=== PATIENT | female | born 1995 | race Caucasian/White ===

== ENCOUNTER 2016-08-06 14:12 | Emergency (ER) | payer MEDICAID ==
[2016-08-06 14:18] VITALS: TEMP 97.8
--- NOTE | 2016-08-06 14:29 | ED PDOC ---
- ECG O2 Sat by Pulse Oximetry: 100 (RA) Pulse Ox Interpretation: Normal Medical Decision Making Medical Decision Making: Impression: Anxiety Attack Plan: * Urine * Xanax 0.25 mg PO * Reevaluation Pt reports feeling much better after xanax and motrin. Discussed addiction potential of xanax with patient. Scribe Attestation: Documented by Lupe Buitrago, acting as a scribe for Sue Rothman PA-C. Provider Scribe Attestation: All medical record entries made by the Scribe were at my direction and personally dictated by me. I have reviewed the chart and agree that the record accurately reflects my personal performance of the history, physical exam, medical decision making, and the department course for this patient. I have also personally directed, reviewed, and agree with the discharge instructions and disposition. Disposition - Clinical Impression Clinical Impression: Anxiety attack, Headache - POA Present On Arrival: None - Disposition [facility]errals: [facility] [Outside] Disposition: Routine/Home Disposition Time: 17:13 Condition: GOOD Prescriptions: ALPRAZolam [Xanax] 0.25 mg PO Q8 PRN #5 tab PRN Reason: Anxiety Instructions: Anxiety (ED) Forms: [facility] ED School/Work Excuse History of Present Illness - General Chief Complaint: Anxiety Stated Complaint: POSS ANXIETY ATTACK Time Seen by Provider: 08/06/16 14:17 - History of Present Illness Allergies/Adverse Reactions: Allergies No Known Allergies Allergy (Verified 12/06/15 22:20) Home Medications: Ambulatory Orders Control 05/12/16 ALPRAZolam [Xanax] 0.25 mg PO Q8 PRN #5 tab 08/06/16 HPI: Psych/Substance Abuse Time Seen by Provider: 08/06/16 14:17 Chief Complaint (Nursing): Anxiety Chief Complaint (Provider): Possible Anxiety Attack History Per: Patient History/Exam Limitations: no limitations Onset/Duration Of Symptoms: Hrs Current Symptoms Are (Timing): Still Present Additional Complaint(s): Pat Curry is a 21 year old female with a history of anxiety that presents to the ED with a chief complaint of a possible anxiety attack. Patient states that earlier today she had a migraine and was feeling nauseous, the latter of which caused her to be unable to take Motrin for her migraine, which she believes triggered her panic attack. She denies chest pain or any trouble breathing. Of Note: Patient used to take Prozac. PMH Reviewed: Historical Data, Nursing Documentation, Vital Signs - Medical History Other PMH: Anxiety - Family History Family History: States: Unknown Family Hx - Immunization History Hx Tetanus Toxoid Vaccination: No Hx Influenza Vaccination: No Hx Pneumococcal Vaccination: No Review of Systems Cardiovascular: Negative for: Chest Pain Respiratory: Negative for: Other (no difficulty breathing) Psych: Positive for: Anxiety Physical Exam - Reviewed Nursing Documentation Reviewed: Yes Vital Signs Reviewed: Yes - Physical Exam Appears: Positive for: Non-toxic, In Acute Distress (Patient appears anxious) Head Exam: Positive for: ATRAUMATIC, NORMOCEPHALIC Skin: Positive for: Normal Color, Warm Eye Exam: Positive for: Normal appearance, EOMI, PERRL (w) Cardiovascular/Chest: Positive for: Regular Rate, Rhythm. Negative for: Murmur Respiratory: Positive for: Normal Breath Sounds. Negative for: Wheezing Neurologic/Psych: Positive for: Alert, Oriented
[2016-08-06 17:31] VITALS: BP 128/78; PULSE 70; RESP 18; O2SAT 99
== END 2016-08-06 17:31 | disposition home or self-care (01) ==
LOC: H.ER 14:12
DX: F41.1 Generalized anxiety disorder (principal); R51 Headache

== ENCOUNTER 2016-12-29 06:35 | Emergency (ER) | payer MEDICAID ==
[2016-12-29 06:53] VITALS: BP 106/64; PULSE 77; RESP 16; TEMP 98.6; O2SAT 100
--- NOTE | 2016-12-29 07:27 | ED PDOC ---
HPI: CCC, URI, Sore Throat Time Seen by Provider: 12/29/16 07:16 Chief Complaint (Nursing): ENT Problem Chief Complaint (Provider): Sore throat, Left ear pain History Per: Patient History/Exam Limitations: no limitations Onset/Duration Of Symptoms: Days (x 2-3) Current Symptoms Are (Timing): Still Present Location Of Pain: Ear(s), Throat Associated Symptoms: Sore Throat Ear Symptoms: Left: Ear Fullness Additional Complaint(s): Pat is a 21 y/o female with a past medical history of seasonal allergies who presents to the ED complaining of feeling that the left ear is clogged, with associated sore throat for the past 2-3 days. No fever, nausea, or vomiting. PMD: provider TBD Past Medical History Reviewed: Historical Data, Nursing Documentation, Vital Signs Vital Signs: Last Vital Signs Temp 98.6 F 12/29/16 06:46 Pulse 77 12/29/16 06:46 Resp 16 12/29/16 06:46 BP 106/64 12/29/16 06:46 Pulse Ox 100 12/29/16 07:30 - Medical History PMH: Anxiety Denies: Diabetes, Hepatitis, HIV, HTN, Seizures, Sexually Transmitted Disease - Surgical History Surgical History: No Surg Hx - Family History Family History: States: Unknown Family Hx - Social History Current smoker - smoking cessation education provided: Yes (Light) Alcohol: None Drugs: Denies - Immunization History Hx Tetanus Toxoid Vaccination: No Hx Influenza Vaccination: No Hx Pneumococcal Vaccination: No - Home Medications Home Medications: Ambulatory Orders Medication Instructions Recorded Control 05/12/16 ALPRAZolam [Xanax] 0.25 mg PO Q8 PRN #5 tab 08/06/16 Loratadine/Pseudoephedrine 1 each PO DAILY PRN #10 tab.er.24h 12/29/16 [Claritin-D 24 Hour Tablet] - Allergies Allergies/Adverse Reactions: Allergies Allergy/AdvReac Type Severity Reaction Status Date / Time No Known Allergies Allergy Verified 12/29/16 07:20 Review of Systems ROS Statement: Except As Marked, All Systems Reviewed And Found Negative Constitutional: Negative for: Fever ENT: Positive for: Ear Pain (Left ear "clogged"), Throat Pain Gastrointestinal: Negative for: Nausea, Vomiting Physical Exam - Reviewed Nursing Documentation Reviewed: Yes Vital Signs Reviewed: Yes - Physical Exam Appears: Positive for: Well, Non-toxic, No Acute Distress Head Exam: Positive for: ATRAUMATIC, NORMAL INSPECTION, NORMOCEPHALIC Skin: Positive for: Normal Color, Warm, Dry. Negative for: Rash Eye Exam: Positive for: EOMI, Normal appearance, PERRL ENT: Positive for: Normal ENT Inspection, Pharynx Is (clear), TM Is/Are (normal bilaterally). Negative for: Pharyngeal Erythema, Tonsillar Exudate Neck: Positive for: Normal, Painless ROM, Supple Neurologic/Psych: Positive for: Alert, Oriented Comments: Patient states that during ear examination, her ear was "popped", alleviating the pressure - ECG O2 Sat by Pulse Oximetry: 100 (RA) Pulse Ox Interpretation: Normal Medical Decision Making Medical Decision Making: Time: 07:24 Initial Plan: --Urine test --Decongestant given Time: 07:40 Clinical Impression: Allergic symptoms Upon provider evaluation patient is medically stable, and requires no further treatment in the ED at this time. Patient will be discharged with Rx for Claritin. Counseling was provided and all questions were answered regarding diagnosis and need for follow up with PMD in 2 days. There is agreement to discharge plan. Return if symptoms persist or worsen. Scribe Attestation: Documented by Domi Hdz, acting as a scribe for Rose Mary Alexander MD Provider Scribe Attestation: All medical record entries made by the Scribe were at my direction and personally dictated by me. I have reviewed the chart and agree that the record accurately reflects my personal performance of the history, physical exam, medical decision making, and the department course for this patient. I have also personally directed, reviewed, and agree with the discharge instructions and disposition. Disposition - Clinical Impression Clinical Impression: Allergic symptoms - Patient ED Disposition Is Patient to be Admitted: No Counseled Patient/Family Regarding: Diagnosis, Need For Followup, Rx Given - Disposition Disposition: Routine/Home Disposition Time: 07:40 Condition: STABLE Additional Instructions: FOLLOW-UP WITH PMD WITHIN 2 DAYS FOR REEVALUATION. Prescriptions: Loratadine/Pseudoephedrine [Claritin-D 24 Hour Tablet] 1 each PO DAILY PRN #10 tab.er.24h PRN Reason: Allergy Symptoms Instructions: Allergies (ED) Forms: [employer] (Danish)
[2016-12-29] MEDS ORDERED: Naproxen 500 MG TAB PO ONE (07:42)
== END 2016-12-29 07:50 | disposition home or self-care (01) ==
LOC: H.ER 06:35
DX: T78.40XA Allergy, unspecified, initial encounter (principal)